=== PATIENT | male | born 1970 | race Caucasian/White ===

== ENCOUNTER → 2016-08-07 | Outpatient (CLI) | payer OTHER | LOC: COL.RAD 07:47 | DX: H05.89 Other disorders of orbit (principal); H53.47 Heteronymous bilateral field defects | CPT/HCPCS: A9585 ==

== ENCOUNTER → 2018-01-19 | Outpatient (CLI) | payer BC, MEDICAID | LOC: COL.RAD 09:19 | DX: K11.8 Other diseases of salivary glands (principal) ==

== ENCOUNTER → 2024-02-19 | Outpatient (CLI) | payer MEDICARE ==
[~2024-02-19] MED LIST: CYMBALTA 60MG60 MG PO; FLEXERIL 1010 MG/TAB PO; Gadoterate 20 ML VIAL IV ONE; LIPITOR 10MG10 MG PO; MOTRIN 600600 MG/TAB PO; NASACORT OTC NS; PERCOCET 325 MG1 TA2 PO; PHARMASSURE ZIN50 MG PO; SYNTHROID 0.0.025 MG PO; XANAX 0.5MG0.5 MG PO
== END ==
LOC: COL.RAD 09:44
DX: D35.2 Benign neoplasm of pituitary gland (principal)
CPT/HCPCS: A9575